=== PATIENT | male | born 1965 | race Caucasian/White ===

== ENCOUNTER 2018-03-25 07:05 | Day surgery (SDC) | payer OTHER ==
[2018-03-25 08:13] VITALS: BP 121/93; TEMP 97.4
--- NOTE | 2018-03-25 10:54 | RAD ---
LUMBAR MYELOGRAM: Date: 03/25/18 INDICATION: Lumbar radiculopathy. FINDINGS: 15 mL Isovue-M200 was injected into the thecal sac at the L3 level with paramidline injection from th e left using fluoroscopic guidance. Subsequent post myelogram films show disc bulge at L2-3 and L3-4 indenting anterior thecal sac. See post myelogram CT lumbar spine for further characterization. PROCEDURE NOTE: The procedure was discussed with the patient. The patient was placed prone on the fluoro table. [facility] and [facility] in the sterile manner. Local anesthesia was administered with lidoca ine under fluoroscopic guidance. A 22 gauge spinal needle was used to enter the spinal canal at the L 3 level from a paramidline approach on the left under fluoroscopic guidance. Clear CSF was recovered. 15 mL [id number]-M200 was injected into the thecal sac under fluoroscopic observation. The patient tolerated the procedure fine and there were no problems or complications. POS: [facility]
--- NOTE | 2018-03-25 10:58 | CT ---
POST MYELOGRAM CT LUMBAR SPINE: INDICATIONS: Post lumbar surgery. Left radicular symptoms and back pain. TECHNIQUE: Multiple axial tomograms obtained through the lumbar spine, post myelogram procedure, with multiplana r reconstruction. FINDINGS: Lumbar vertebrae maintain normal height and alignment. Pedicle screws and rods transfix the C4, C5, and S1 levels. An interbody implant is in place at L4-L5. There is loss of disk space and degenerat ankita disk changes at L5-S1. L1-L2: Broad-based disk bulge mildly flattens the anterior thecal sac. No significant central canal or foraminal stenosis. L2-L3: Diffuse disk bulge is more prominent, flattening the anterior thecal sac. There is mild face t hypertrophy. Mild central canal stenosis. L3-L4: Broad-based disk bulge flattens the anterior thecal sac. There is moderate facet and ligamen tous hypertrophy. Mild to moderate central canal stenosis. Pedicle screws at L4 appear adequately positioned with minimal encroachment in the lateral recess on the left. L4-L5: Evidence of residual disk bulge or protrusion. Mild hypertrophic change. Prominent facet hy pertrophy. No significant central canal stenosis. No evidence of foraminal stenosis. Pedicle screws at L5 appear adequately positioned. L5-S1: Posterior disk bulge and hypertrophic change abut the thecal sac. There is a disk osteophyte complex projecting into the foramina on the left. These changes appear to impinge on both traversin g S1 nerve roots. There is facet hypertrophy and postoperative change; however, no significant centr al canal stenosis. Pedicle screws at S1 appear adequately positioned. IMPRESSION: 1. Postoperative changes at L4, L5, and S1. Disk bulge and hypertrophic changes at L5-S1 contact miguel angel th traversing S1 nerve roots, as noted above. 2. Mild broad-based disk bulge at L2-L3 and at L3-L4, as noted above. POS: [facility]
[2018-03-25] MEDS ORDERED: Iopamidol-M 200 41% 20 ML VIAL ONE (15:11)
== END 2018-03-25 09:35 | disposition home or self-care (01) ==
LOC: RAD 07:05
PROVIDERS: ATTEND Neurological Surgery
PROC: B01B1ZZ Fluoroscopy of Spinal Cord using Low Osmolar Contrast (ICD-10-PCS; principal; 2018-03-25)
DX: M51.36 Other intervertebral disc degeneration, lumbar region (principal); M54.16 Radiculopathy, lumbar region; G25.81 Restless legs syndrome; G43.909 Migraine, unspecified, not intractable, without status migrainosus; E89.0 Postprocedural hypothyroidism; Z79.899 Other long term (current) drug therapy; Z91.013 Allergy to seafood; Z98.1 Arthrodesis status
CPT/HCPCS: 62304; 72132